=== PATIENT | male | born 1950 | race Caucasian/White ===

== ENCOUNTER 2023-03-23 16:42 | Emergency (ER) | payer MEDICARE, OTHER ==
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
== END 2023-03-23 20:56 | disposition expired ==
LOC: ED 16:42
DX: T79.4XXA Traumatic shock, initial encounter (principal); V49.9XXA Car occupant (driver) (passenger) injured in unspecified traffic accident, initial encounter
CPT/HCPCS: 99283